=== PATIENT | female | born 1955 | race Caucasian/White ===

== ENCOUNTER 2019-06-08 20:34 | Emergency (ER) | payer MEDICARE, OTHER ==
[~2019-06-08] VITALS: Ht 162.6 cm; Wt 82.0 kg
[2019-06-08] MEDS ORDERED: PERCOCET 5/325M1 TAB PO (22:09)
[2019-06-08 22:34] VITALS: BP 154/58
== END 2019-06-08 22:34 | disposition home or self-care (01) ==
LOC: ED 20:34
DX: S52.515A Nondisplaced fracture of left radial styloid process, initial encounter for closed fracture (principal); S00.81XA Abrasion of other part of head, initial encounter; S00.511A Abrasion of lip, initial encounter; I10 Essential (primary) hypertension; W01.0XXA Fall on same level from slipping, tripping and stumbling without subsequent striking against object, initial encounter; Y92.009 Unspecified place in unspecified non-institutional (private) residence as the place of occurrence of the external cause